=== PATIENT | male | born 1990 | race Two or more races ===

== ENCOUNTER 2024-01-30 06:03 | Inpatient (IN) | payer MEDICAID ==
[~2024-01-30] VITALS: Ht 170.2 cm; Wt 45.6 kg
[2024-01-30] MEDS: ALPRAZolam 0.5mg tablet PO ONE (06:00)
[2024-01-30 07:43] LABS: BILIRUBIN,URINE SMALL (Neg); CLARITY,URINE CLEAR (Clear); GLUCOSE, URINE NEGATIVE (Neg); KETONES,URINE 15 mg/dl (Neg); LEUKOCYTE ESTERASE ,URINE NEGATIVE (Neg); NITRITES, URINE NEGATIVE (Neg); OCCULT BLOOD,URINE NEGATIVE (Neg); PROTEIN,URINE TRACE mg/dl (Neg)
[2024-01-30 07:44] LABS: COLOR,URINE DARK YELLOW (Yellow); UA COLLECTION TYPE NON-SPECIFIED
[2024-01-30 07:49] LABS: BACTERIA,URINE NONE SEEN /HPF (Neg); MUCUS STRANDS FEW /LPF (Neg); RBC,URINE 0-2 /HPF (0-2); SQUAMOUS EPITHELIAL CELL,UR FEW /LPF (FEW)
[2024-01-30] MEDS ORDERED: TRAZ-251 PO (08:10)
[2024-01-30] MEDS ORDERED: ALPR1TAB7 PO (08:10)
[2024-01-30] MEDS ORDERED: ALBU10.7 IH (08:10)
[2024-01-30] MEDS ORDERED: GABA300T28 PO (08:10)
[2024-01-30] MEDS ORDERED: CLON0.5T4 PO (08:10)
[2024-01-30 08:13] LABS: URINE AMPHETAMINE SCREEN NEGATIVE (Neg); URINE BARBITUATE SCREEN NEGATIVE (Neg); URINE BENZODIAZEPINES SCREEN POSITIVE (Neg); URINE CANNABINOID SCREEN POSITIVE (Neg); URINE COCAINE SCREEN NEGATIVE (Neg); URINE METHADONE SCREEN NEGATIVE (Neg); URINE OPIATE SCREEN NEGATIVE (Neg); URINE PHENCYCLIDINE SCREEN NEGATIVE (Neg)
[2024-01-30 08:22] LABS: BASOPHILS % (AUTO) 0.2 % (0-1); EOSINOPHILS % (AUTO) 0.3 % (0-6); HEMATOCRIT 47.1 % (42.0-52.0); HEMOGLOBIN 15.7 g/dl (14.0-17.9); LYMPHOCYTES # (AUTO) 1.6 X10'3 (1.1-4.8); LYMPHOCYTES % (AUTO) 15.2 % (21-51); MEAN CORPUSCULAR HEMOGLOBIN 29.9 PG (27.0-31.0); MEAN CORPUSCULAR HGB CONC 33.3 g/dL (33.0-36.5); MEAN CORPUSCULAR VOLUME 89.7 FL (78-98); MEAN PLATELET VOLUME 9.7 FL (7.4-10.4); MONOCYTES % (AUTO) 9.2 % (2-12); NEUTROPHILS # (AUTO) 7.9 X10'3 (1.8-7.7); NEUTROPHILS % (AUTO) 75.1 % (42-75); PLATELET COUNT 206 X10'3 (140-440); RED BLOOD COUNT 5.25 X10'6 (4.70-6.10); RED CELL DISTRIBUTION WIDTH 13.3 % (11.5-14.5); WHITE BLOOD COUNT 10.5 X10'3 (4.5-11.0)
[2024-01-30 08:42] LABS: ALBUMIN 4.4 G/DL (3.4-5.0); ANION GAP 6 (8-16); BLOOD UREA NITROGEN 18 MG/DL (7-18); BUN/CREATININE RATIO 19.8 (10.0-20.0); CHLORIDE 107 MMOL/L (99-107); CREATININE 0.91 MG/DL (0.60-1.10); ETHANOL < 10 MG/DL (<10); GLUCOSE 94 MG/DL (70-104); SODIUM 144 MMOL/L (135-145); THYROID STIMULATING HORMONE 0.39 ulU/ml (0.34-4.50); TOTAL CARBON DIOXIDE 30.7 MMOL/L (24-32); eCRCL 75 ML/MIN; eGFR > 90 ML/MIN
[2024-01-30] MEDS: ALPRAZolam 0.5mg tablet PO PRN (13:35)
[2024-01-30] MEDS: OLANZapine 2.5MG tablet PO STA (15:48)
[2024-01-30 16:38] VITALS: BP 105/74; PULSE 69; RESP 14; TEMP 100; O2SAT 100
[2024-01-30] MEDS ORDERED: loperamide 2mg capsule PO PRN (17:00)
[2024-01-30] MEDS ORDERED: magnesium hydroxide 30ml (MOM) UD suspension PO PRN (17:00)
[2024-01-30] MEDS ORDERED: acetaminophen 325mg tablet PO PRN ×2 (17:00)
[2024-01-30] MEDS ORDERED: mag hydrox/Alum hydrox/simeth 30ml oral suspension PO PRN (17:00)
[2024-01-30 19:00] VITALS: RESP 14; O2SAT 100
[2024-01-30 19:37] VITALS: PULSE 79; RESP 16; O2SAT 96
[2024-01-30] MEDS: budesonide 0.5mg/2ml UD nebule IH SCH (19:37)
[2024-01-30] MEDS: albuterol 2.5 MG/3 ML nebule NEB PRN (19:37)
[2024-01-30 19:44] VITALS: PULSE 74; RESP 16
[2024-01-30] MEDS: gabapentin 300mg capsule PO SCH (19:44)
[2024-01-30] MEDS: traZODone 50mg tablet PO SCH (19:44)
[2024-01-30] MEDS: clonazePAM 0.5mg tablet PO SCH (19:44)
[2024-01-30 20:00] VITALS: BP 96/61; PULSE 68; RESP 14; TEMP 98.9; O2SAT 100
[2024-01-30] MEDS ORDERED: clonazePAM 0.5mg tablet PO SCH (20:00)
[2024-01-30] MEDS ORDERED: ALPRAZolam 0.25mg tablet PO ONE (21:40)
[2024-01-30] MEDS ORDERED: traZODone 50mg tablet PO SCH (21:45)
[2024-01-31] VITALS (7 sets, daily range): BP systolic 118–135; BP diastolic 74–79; PULSE 81–97; RESP 16–18; TEMP 98.2–98.8; O2SAT 97–100
[2024-01-31] MEDS: OLANZapine 5mg rapidly disint. tablet PO SCH (11:40)
[2024-01-31] MEDS: OLANZapine 5mg rapidly disint. tablet PO ONE (11:55)
[2024-01-31] MEDS: gabapentin 300mg capsule PO SCH (12:14)
[2024-01-31] MEDS: haloperidol 5mg tablet PO SCH (12:25)
[2024-01-31] MEDS ORDERED: traZODone 50mg tablet PO SCH ×2 (20:00→21:00)
[2024-01-31] MEDS ORDERED: OLANZapine 5mg rapidly disint. tablet PO SCH (21:00)
[2024-02-01] MEDS: traZODone 50mg tablet PO SCH ×2 (01:21→20:09)
[2024-02-01 07:30] VITALS: BP 121/84; PULSE 89; RESP 16; TEMP 99.8; O2SAT 100
[2024-02-01] MEDS ORDERED: OLANZapine 5mg rapidly disint. tablet PO SCH (08:00)
[2024-02-01 10:18] VITALS: PULSE 106; RESP 17; O2SAT 98
[2024-02-01] MEDS: OLANZapine 5mg rapidly disint. tablet PO ONE (12:06)
[2024-02-01 19:00] VITALS: RESP 16; O2SAT 100
[2024-02-01] MEDS: OLANZapine 5mg rapidly disint. tablet PO SCH (20:09)
[2024-02-01 21:00] VITALS: BP 111/73; PULSE 86; RESP 16; TEMP 100.4; O2SAT 100
[2024-02-02 07:00] VITALS: RESP 16; O2SAT 98
[2024-02-02 08:00] VITALS: BP 119/74; PULSE 97; RESP 16; TEMP 99; O2SAT 98
[2024-02-02] MEDS: gabapentin 300mg capsule PO SCH (08:15)
[2024-02-02 19:00] VITALS: RESP 19; O2SAT 99
[2024-02-02 20:00] VITALS: BP 123/85; PULSE 86; RESP 16; TEMP 99.6; O2SAT 99
[2024-02-02] MEDS: gabapentin 100mg capsule PO SCH (21:08)
[2024-02-02] MEDS: OLANZapine 5mg rapidly disint. tablet PO SCH (21:09)
[2024-02-03 07:00] VITALS: RESP 20; O2SAT 99
[2024-02-03 08:00] VITALS: BP 126/78; PULSE 89; RESP 20; TEMP 99; O2SAT 99
[2024-02-03 08:30] VITALS: PULSE 106; RESP 20; O2SAT 97
[2024-02-03] MEDS ORDERED: GABA-530 PO (16:59)
[2024-02-03] MEDS ORDERED: OLAN5TAB29 PO (16:59)
[2024-02-03] MEDS ORDERED: TRAZ-251 PO (16:59)
[2024-02-03 19:30] VITALS: RESP 18; O2SAT 100
[2024-02-03 20:00] VITALS: BP 150/81; PULSE 79; RESP 18; TEMP 98; O2SAT 100
[2024-02-04 07:58] VITALS: RESP 20; O2SAT 99
[2024-02-04] MEDS: ondansetron 4mg rapidly disintigrating tab PO ONE (08:56)
[2024-02-04] MEDS: hydrOXYzine 25 MG tablet PO ONE (08:56)
== END 2024-02-04 10:05 | disposition home or self-care (01) | DRG 753 ==
LOC: ER 06:04 → ADULT MH 15:45 → UNDOADMIN 15:45 → ADULT MH 17:58
PROVIDERS: ADMIT Psychiatry & Neurology Psychiatry; ATTEND Psychiatry & Neurology Psychiatry
DX: F39 Unspecified mood [affective] disorder (principal); F22 Delusional disorders; F13.10 Sedative, hypnotic or anxiolytic abuse, uncomplicated; F15.90 Other stimulant use, unspecified, uncomplicated; F41.9 Anxiety disorder, unspecified; Z20.822 Contact with and (suspected) exposure to COVID-19; G47.00 Insomnia, unspecified; M48.061 Spinal stenosis, lumbar region without neurogenic claudication; Z88.0 Allergy status to penicillin; Z81.8 Family history of other mental and behavioral disorders
CPT/HCPCS: 36415; 80048; 80305; 80320; 81001; 84443; 85025; 87081; 87811; 94640; 94760; 99285; C2617; Q0177